=== PATIENT | male | born 1985 | race African-American/Black ===

== ENCOUNTER 2022-04-28 08:47 | Day surgery (SDC) | payer OTHER ==
[2022-04-25 12:33] VITALS: BMI 26.5
[2022-04-28 09:24] VITALS: TEMP 97.9
[2022-04-28] MEDS ORDERED: oxyCODONE HCL 5 MG TABLET PO PRN (10:17)
[2022-04-28] MEDS ORDERED: PROMETHAZINE HCL 25 MG/1 ML VIAL IVPUSH PRN (10:17)
[2022-04-28] MEDS ORDERED: ONDANSETRON 4 MG/2 ML VIAL IVPUSH PRN (10:17)
[2022-04-28] MEDS ORDERED: LACTATED RINGERS SOLUTION 1,000 ML IV SCH (10:30)
[2022-04-28] MEDS ORDERED: PROPOFOL 20 ML ONE (10:37)
[2022-04-28] MEDS ORDERED: MIDAZOLAM HCL 2 MG/2 ML SINGLE DOSE VIAL ONE (10:37)
[2022-04-28] MEDS ORDERED: BUPIVACAINE HCL 100 ML ONE (10:39)
[2022-04-28] MEDS ORDERED: LIDOCAINE HCL 1%, 10 MG/ML (20ML VIAL) ONE (10:39)
[2022-04-28] MEDS ORDERED: FENTANYL CITRATE/PF 50 MCG/ML VIAL ONE (14:04)
[2022-04-28 14:52] VITALS: RESP 16
[2022-04-28 15:24] VITALS: BP 122/79; PULSE 85
== END 2022-04-28 16:20 | disposition home or self-care (01) ==
LOC: FASU 08:47
PROVIDERS: ATTEND Orthopaedic Surgery
PROC: 0RQP0ZZ Repair Left Wrist Joint, Open Approach (ICD-10-PCS; 2022-04-28)
PROC: 0MQ64ZZ Repair Left Wrist Bursa and Ligament, Percutaneous Endoscopic Approach (ICD-10-PCS; principal; 2022-04-28 11:36)
DX: S63.592A Other specified sprain of left wrist, initial encounter (principal); S63.392A Traumatic rupture of other ligament of left wrist, initial encounter; M24.132 Other articular cartilage disorders, left wrist; X58.XXXA Exposure to other specified factors, initial encounter; Y93.9 Activity, unspecified; Y92.9 Unspecified place or not applicable
CPT/HCPCS: 73110-TC-LT-FY; 94760

== ENCOUNTER 2024-06-21 19:14 | Emergency (ER) | payer OTHER ==
[2024-06-21 19:45] VITALS: BP 125/80; PULSE 76; RESP 18; TEMP 98.2; BMI 24.3
[2024-06-21] MEDS ORDERED: LIDOCAINE 4% PATCH TP ONE (20:57)
[2024-06-21] MEDS: KETOROLAC TROMETHAMINE 15 MG/ML VIAL IM ONE (21:12)
[2024-06-21] MEDS: LIDOCAINE 5% TOPICAL PATCH TP ONE (21:13)
[2024-06-21] MEDS ORDERED: LIDOCAINE PATCH REMOVAL MC SCH (22:00)
== END 2024-06-21 21:13 | disposition home or self-care (01) ==
LOC: JER 19:14 → JERFT 19:14
DX: M54.50 Low back pain, unspecified (principal); M79.10 Myalgia, unspecified site
CPT/HCPCS: 99283-25